=== PATIENT | female | born 1955 ===

== ENCOUNTER 2018-06-12 09:05 | Outpatient (CLI) | payer MEDICARE | END 2018-06-12 09:06 | disposition home or self-care (01) | LOC: C.MAMMO 09:05 | DX: Z12.31 Encounter for screening mammogram for malignant neoplasm of breast (principal) ==

== ENCOUNTER 2018-08-21 09:16 | Outpatient (CLI) | payer MEDICARE | END 2018-08-21 09:17 | disposition home or self-care (01) | LOC: C.USIC 09:17 ==